=== PATIENT | female | born 1955 | race Caucasian/White ===

== ENCOUNTER 2019-09-17 15:16 | Emergency (ER) | payer MEDICAID ==
[~2019-09-17] VITALS: Ht 154.9 cm; Wt 103.0 kg
[2019-09-17 15:23] VITALS: BP 149/82
[2019-09-17] MEDS ORDERED: ACETAMINOPHEN 325MG TABLET PO ONE (16:00)
== END 2019-09-17 17:46 | disposition home or self-care (01) ==
LOC: ER 15:16
DX: R60.0 Localized edema (principal); I10 Essential (primary) hypertension
CPT/HCPCS: 93971; 99284

== ENCOUNTER 2021-04-17 16:02 | Inpatient (IN) | payer MEDICAID, MEDICARE ==
[~2021-04-17] VITALS: Ht 157.5 cm; Wt 74.8 kg
[2021-04-17 16:58] LABS: BASOPHILS % 0.6 % (0.0-2.0); EOSINOPHILS % 0.7 % (0.0-5.0); HEMOGLOBIN. 16.5 g/dL (12.0-16.0); LYMPHOCYTES % 18.1 % (20.0-50.0); MEAN CORPUSCULAR HEMOGLOBIN 30.7 pg (28.0-32.0); MEAN CORPUSCULAR VOLUME 91.6 fL (81.0-99.0); MONOCYTES % 11.3 % (2.0-8.0); NEUTROPHILS % 69.3 % (40.0-76.0); RED BLOOD CELL COUNT 5.36 mill/uL (4.2-5.4); RED CELL DISTRIBUTION WIDTH 14.4 % (11.6-14.6)
[2021-04-17 17:05] LABS: CHLORIDE 90 mEq/L (98-107)
[2021-04-17 17:16] LABS: MEAN PLATELET VOLUME 8.8 fl (7.4-10.4); PLATELET 250 x1000/uL (130-400)
[2021-04-17] MEDS ORDERED: FUROSEMIDE 20MG/2ML VIAL IVP ONE (18:00)
[2021-04-17 19:51] LABS: CLARITY URINE CLEAR (CLEAR); COLOR URINE YELLOW (YELLOW); KETONES URINE TRACE (NEGATIVE); LEUKOCYTE ESTERASE URINE NEGATIVE (NEGATIVE); NITRITE URINE NEGATIVE (NEGATIVE); OCCULT BLOOD URINE NEGATIVE (NEGATIVE); PROTEIN URINE NEGATIVE (NEGATIVE); SPECIFIC GRAVITY URINE 1.009 (1.005-1.030)
[2021-04-17 22:30] VITALS: BP 125/100
[2021-04-17 23:00] VITALS: BP 125/100
[2021-04-17] MEDS ORDERED: ACETAMINOPHEN 325MG TABLET PO PRN (23:00)
[2021-04-17] MEDS ORDERED: ONDANSETRON HCL 4MG TABLET PO NR (23:45)
[2021-04-18] VITALS (7 sets, daily range): BP systolic 92–136; BP diastolic 50–87
[2021-04-18] MEDS: CARVEDILOL 3.125 MG TABLET PO SCH ×3 (00:16→17:00)
[2021-04-18] MEDS ORDERED: HYDR12.54 MT (01:12)
[2021-04-18] MEDS ORDERED: PNEUMOCOCCAL 23-VAL P-SAC VAC 0.5 ML IM ONE (08:00)
[2021-04-18] MEDS ORDERED: FUROSEMIDE 40MG TABLET PO SCH (09:00)
[2021-04-18] MEDS ORDERED: LISINOPRIL 20MG TABLET PO SCH (09:00)
[2021-04-18] MEDS ORDERED: POTASSIUM CHLORIDE 20MEQ TABLET SR PO NR (10:00)
[2021-04-18] MEDS ORDERED: INFLUENZA VACCINE 05/PF 0.5 ML SYRINGE IM ONE (10:00)
[2021-04-18] MEDS ORDERED: REGADENOSON 0.4 MG/5 ML IV NR (11:00)
[2021-04-18] MEDS: FUROSEMIDE 40MG/4ML VIAL IVP SCH (11:42)
[2021-04-18] MEDS: ONDANSETRON HCL 4MG/2ML INJ IV PRN (11:42)
[2021-04-18] MEDS: ASPIRIN 81MG TABLET PO SCH (11:43)
[2021-04-18] MEDS: ENOXAPARIN 40MG/0.4ML SYR SUBCUT SCH (11:43)
[2021-04-18] MEDS ORDERED: LACTULOSE 20G/30ML UDC PO NR (19:30)
[2021-04-18] MEDS: ATORVASTATIN CALCIUM 10MG TABLET PO SCH (21:25)
[2021-04-19] VITALS: BP 121/73
[2021-04-19 04:00] VITALS: BP 114/79
[2021-04-19 06:10] LABS: BASOPHILS % 0.4 % (0.0-2.0); EOSINOPHILS % 0.4 % (0.0-5.0); HEMATOCRIT. 47.5 % (36.0-48.0); HEMOGLOBIN. 16.6 g/dL (12.0-16.0); LYMPHOCYTES % 12.9 % (20.0-50.0); MEAN CORPUSCULAR VOLUME 91.7 fL (81.0-99.0); MEAN PLATELET VOLUME 9.1 fl (7.4-10.4); MONOCYTES % 9.9 % (2.0-8.0); NEUTROPHILS % 76.4 % (40.0-76.0); PLATELET 280 x1000/uL (130-400); RED BLOOD CELL COUNT 5.18 mill/uL (4.2-5.4); RED CELL DISTRIBUTION WIDTH 14.5 % (11.6-14.6)
[2021-04-19] MEDS ORDERED: MORPHINE SULFATE 2 MG/ML CPJ (NOT FOR IM USE) IV PRN (07:00)
[2021-04-19] MEDS ORDERED: NALOXONE HCL 0.4MG/ML VIAL IV PRN (07:15)
[2021-04-19 08:00] VITALS: BP 136/66
[2021-04-19] MEDS: ASPIRIN 81MG TABLET PO SCH (09:14)
[2021-04-19] MEDS: CARVEDILOL 3.125 MG TABLET PO SCH (09:14)
[2021-04-19] MEDS: FUROSEMIDE 40MG/4ML VIAL IVP SCH (09:14)
[2021-04-19] MEDS: ENOXAPARIN 40MG/0.4ML SYR SUBCUT SCH (09:15)
[2021-04-19 12:00] VITALS: BP 110/55
[2021-04-19] MEDS ORDERED: REGADENOSON 0.4 MG/5 ML IV ONE (13:48)
[2021-04-19] MEDS ORDERED: FLUDROCORTISONE ACETATE 0.1MG TABLET PO SCH (14:00)
[2021-04-19] MEDS: MULTIVITAMINS,THER W-MINERALS TABLET PO SCH (15:48)
[2021-04-19 16:00] VITALS: BP 142/88
[2021-04-19] MEDS: FLUDROCORTISONE ACETATE 0.1MG TABLET PO SCH (17:39)
[2021-04-19 20:00] VITALS: BP 135/93
[2021-04-19] MEDS: ATORVASTATIN CALCIUM 10MG TABLET PO SCH (21:30)
[2021-04-20] VITALS: BP 129/74
[2021-04-20 04:00] VITALS: BP_SYST 106; BP_SYST 96; BP_DIAS 57; BP_DIAS 58
[2021-04-20 07:01] LABS: BASOPHILS % 0.5 % (0.0-2.0); EOSINOPHILS % 1.4 % (0.0-5.0); HEMATOCRIT. 45.2 % (36.0-48.0); HEMOGLOBIN. 15.7 g/dL (12.0-16.0); LYMPHOCYTES % 27.5 % (20.0-50.0); MEAN CORPUSCULAR HEMOGLOBIN 31.3 pg (28.0-32.0); MEAN CORPUSCULAR VOLUME 90.1 fL (81.0-99.0); MEAN PLATELET VOLUME 8.9 fl (7.4-10.4); MONOCYTES % 13.2 % (2.0-8.0); NEUTROPHILS % 57.4 % (40.0-76.0); PLATELET 257 x1000/uL (130-400); RED BLOOD CELL COUNT 5.02 mill/uL (4.2-5.4); RED CELL DISTRIBUTION WIDTH 14.7 % (11.6-14.6)
[2021-04-20 08:00] VITALS: BP 116/50
[2021-04-20] MEDS: FLUDROCORTISONE ACETATE 0.1MG TABLET PO SCH (08:48)
[2021-04-20] MEDS: ASPIRIN 81MG TABLET PO SCH (08:48)
[2021-04-20] MEDS: MULTIVITAMINS,THER W-MINERALS TABLET PO SCH (08:48)
[2021-04-20] MEDS: ENOXAPARIN 40MG/0.4ML SYR SUBCUT SCH (08:49)
[2021-04-20] MEDS ORDERED: POTASSIUM CHLORIDE 20MEQ TABLET SR PO NR ×2 (11:30→14:00)
[2021-04-20 16:00] VITALS: BP 109/67
[2021-04-20] MEDS: MIDODRINE HCL 5MG TABLET PO SCH (18:16)
[2021-04-20] MEDS ORDERED: SODIUM CHLORIDE 0.9% 500 ML IV ONE (18:30)
[2021-04-20 20:00] VITALS: BP 119/64
[2021-04-20] MEDS ORDERED: ATORVASTATIN CALCIUM 20MG TABLET PO SCH (21:00)
[2021-04-20] MEDS: ATORVASTATIN CALCIUM 10MG TABLET PO SCH (22:01)
[2021-04-21] VITALS: BP 107/66
[2021-04-21] MEDS ORDERED: SODIUM CHLORIDE IV SCH
[2021-04-21] MEDS ORDERED: SODIUM CHLORIDE 0.9% IV SCH ×2 (01:00→09:00)
[2021-04-21] MEDS ORDERED: POTASSIUM ACETATE IV SCH ×3 (01:00→09:00)
[2021-04-21 04:00] VITALS: BP 108/76
[2021-04-21 08:00] VITALS: BP 115/47
[2021-04-21 08:09] LABS: BASOPHILS % 0.9 % (0.0-2.0); EOSINOPHILS % 1.9 % (0.0-5.0); HEMATOCRIT. 44.3 % (36.0-48.0); HEMOGLOBIN. 15.1 g/dL (12.0-16.0); LYMPHOCYTES % 36.6 % (20.0-50.0); MEAN CORPUSCULAR HEMOGLOBIN 31.2 pg (28.0-32.0); MEAN CORPUSCULAR VOLUME 91.5 fL (81.0-99.0); MEAN PLATELET VOLUME 9.2 fl (7.4-10.4); MONOCYTES % 14.4 % (2.0-8.0); NEUTROPHILS % 46.2 % (40.0-76.0); PLATELET 249 x1000/uL (130-400); RED BLOOD CELL COUNT 4.85 mill/uL (4.2-5.4); RED CELL DISTRIBUTION WIDTH 14.6 % (11.6-14.6)
[2021-04-21] MEDS: MIDODRINE HCL 5MG TABLET PO SCH ×3 (08:31→16:21)
[2021-04-21] MEDS: ASPIRIN 81MG TABLET PO SCH (08:31)
[2021-04-21] MEDS: MULTIVITAMINS,THER W-MINERALS TABLET PO SCH (08:32)
[2021-04-21] MEDS: ENOXAPARIN 30MG/0.3ML SYR SUBCUT SCH (10:59)
[2021-04-21 12:00] VITALS: BP 116/70
[2021-04-21] MEDS: POTASSIUM CHLORIDE INJ 10 MEQ in SODIUM CHLORIDE 0.9% 1,000 ML IV SCH (13:44)
[2021-04-21] MEDS ORDERED: MIDAZOLAM HCL 5 MG/5 ML VIAL ONE (14:22)
[2021-04-21] MEDS ORDERED: LIDOCAINE HCL 1% 10 MG/ML 10ML VIAL ONE (14:22)
[2021-04-21] MEDS ORDERED: FENTANYL CITRATE/PF 50MCG/ML 5ML VIAL ONE (14:22)
[2021-04-21] MEDS ORDERED: IODIXANOL 320MG/ML 100 ML BOTTLE IV ONE (14:23)
[2021-04-21 16:00] VITALS: BP 134/72
[2021-04-21] MEDS: DOCUSATE SODIUM 250MG CAPSULE PO SCH (16:21)
[2021-04-21] MEDS ORDERED: MAGNESIUM CITRATE 300ML SOLUTION PO SCH (17:00)
[2021-04-21 20:00] VITALS: BP 146/82
[2021-04-21] MEDS: ATORVASTATIN CALCIUM 10MG TABLET PO SCH (21:35)
[2021-04-22] VITALS: BP 118/64
[2021-04-22 04:00] VITALS: BP 107/71
[2021-04-22 08:00] VITALS: BP 129/60
[2021-04-22 08:28] LABS: BASOPHILS % 0.5 % (0.0-2.0); EOSINOPHILS % 1.9 % (0.0-5.0); HEMATOCRIT. 42.2 % (36.0-48.0); HEMOGLOBIN. 14.7 g/dL (12.0-16.0); MEAN CORPUSCULAR HEMOGLOBIN 31.6 pg (28.0-32.0); MEAN CORPUSCULAR VOLUME 90.7 fL (81.0-99.0); MEAN PLATELET VOLUME 8.7 fl (7.4-10.4); MONOCYTES % 10.6 % (2.0-8.0); PLATELET 249 x1000/uL (130-400); RED BLOOD CELL COUNT 4.65 mill/uL (4.2-5.4); RED CELL DISTRIBUTION WIDTH 14.6 % (11.6-14.6)
[2021-04-22 08:53] LABS: CHLORIDE 96 mEq/L (98-107)
[2021-04-22] MEDS: LACTULOSE 20G/30ML UDC PO SCH ×3 (09:00→13:00)
[2021-04-22 09:23] LABS: FOLIC ACID (FOLATE) SERUM 4.1 ng/mL (>5.38)
[2021-04-22] MEDS: POTASSIUM CHLORIDE INJ 10 MEQ in SODIUM CHLORIDE 0.9% 1,000 ML IV SCH (10:28)
[2021-04-22] MEDS: ASPIRIN 81MG TABLET PO SCH (10:29)
[2021-04-22] MEDS: DOCUSATE SODIUM 250MG CAPSULE PO SCH (10:29)
[2021-04-22] MEDS: MULTIVITAMINS,THER W-MINERALS TABLET PO SCH (10:29)
[2021-04-22] MEDS: MIDODRINE HCL 5MG TABLET PO SCH ×3 (10:30→17:56)
[2021-04-22 12:00] VITALS: BP 128/79
[2021-04-22] MEDS: ENOXAPARIN 30MG/0.3ML SYR SUBCUT SCH (12:45)
[2021-04-22 16:00] VITALS: BP 130/86
[2021-04-22 20:00] VITALS: BP 141/76
[2021-04-22] MEDS ORDERED: ATORVASTATIN CALCIUM 10MG TABLET PO SCH (21:00)
[2021-04-22] MEDS: ATORVASTATIN CALCIUM 10MG TABLET PO SCH (21:04)
[2021-04-23] VITALS: BP 129/65
[2021-04-23 04:00] VITALS: BP 116/60
[2021-04-23] MEDS: POTASSIUM CHLORIDE INJ 10 MEQ in SODIUM CHLORIDE 0.9% 1,000 ML IV SCH (06:46)
[2021-04-23 06:48] LABS: BASOPHILS % 0.4 % (0.0-2.0); EOSINOPHILS % 2.4 % (0.0-5.0); HEMATOCRIT. 41.1 % (36.0-48.0); HEMOGLOBIN. 14.5 g/dL (12.0-16.0); LYMPHOCYTES % 45.6 % (20.0-50.0); MEAN CORPUSCULAR HEMOGLOBIN 31.9 pg (28.0-32.0); MEAN CORPUSCULAR VOLUME 90.5 fL (81.0-99.0); MEAN PLATELET VOLUME 9.2 fl (7.4-10.4); MONOCYTES % 10.9 % (2.0-8.0); NEUTROPHILS % 40.7 % (40.0-76.0); PLATELET 255 x1000/uL (130-400); RED BLOOD CELL COUNT 4.54 mill/uL (4.2-5.4); RED CELL DISTRIBUTION WIDTH 14.6 % (11.6-14.6)
[2021-04-23 06:56] LABS: CHLORIDE 100 mEq/L (98-107)
[2021-04-23 08:00] VITALS: BP 135/57
[2021-04-23] MEDS ORDERED: FOLIC ACID 1MG TABLET PO SCH (09:00)
[2021-04-23] MEDS: DOCUSATE SODIUM 250MG CAPSULE PO SCH (09:01)
[2021-04-23] MEDS: FOLIC ACID 1MG TABLET PO SCH (09:01)
[2021-04-23] MEDS: ASPIRIN 81MG TABLET PO SCH (09:01)
[2021-04-23] MEDS: MULTIVITAMINS,THER W-MINERALS TABLET PO SCH (09:01)
[2021-04-23] MEDS: MIDODRINE HCL 5MG TABLET PO SCH ×2 (09:02→16:58)
[2021-04-23] MEDS: ENOXAPARIN 40MG/0.4ML SYR SUBCUT SCH (10:25)
[2021-04-23 12:00] VITALS: BP 135/52
[2021-04-23 16:00] VITALS: BP 150/77
[2021-04-23 20:00] VITALS: BP 138/78
[2021-04-23] MEDS: ATORVASTATIN CALCIUM 10MG TABLET PO SCH (21:16)
[2021-04-24] VITALS: BP 149/75
[2021-04-24] MEDS: POTASSIUM CHLORIDE INJ 10 MEQ in SODIUM CHLORIDE 0.9% 1,000 ML IV SCH ×2 (00:01→23:07)
[2021-04-24 04:00] VITALS: BP 153/85
[2021-04-24 08:00] VITALS: BP 142/79
[2021-04-24 08:03] LABS: T4 FREE 1.17 ng/dL (0.76-1.46)
[2021-04-24] MEDS: FOLIC ACID 1MG TABLET PO SCH (08:28)
[2021-04-24] MEDS: ASPIRIN 81MG TABLET PO SCH (08:28)
[2021-04-24] MEDS: MULTIVITAMINS,THER W-MINERALS TABLET PO SCH (08:28)
[2021-04-24] MEDS: DOCUSATE SODIUM 250MG CAPSULE PO SCH (08:29)
[2021-04-24] MEDS: ENOXAPARIN 40MG/0.4ML SYR SUBCUT SCH (08:29)
[2021-04-24] MEDS: MIDODRINE HCL 5MG TABLET PO SCH ×2 (08:29→16:59)
[2021-04-24 12:00] VITALS: BP 154/86
[2021-04-24 16:00] VITALS: BP 157/87
[2021-04-24 20:00] VITALS: BP 150/74
[2021-04-24] MEDS: ATORVASTATIN CALCIUM 10MG TABLET PO SCH (21:59)
[2021-04-25] VITALS: BP 97/60
[2021-04-25 04:00] VITALS: BP 174/97
[2021-04-25 05:25] LABS: CHLORIDE 107 mEq/L (98-107)
[2021-04-25 08:00] VITALS: BP 157/76
[2021-04-25] MEDS ORDERED: POTASSIUM CHLORIDE 20MEQ TABLET SR PO SCH (08:15)
[2021-04-25] MEDS: ENOXAPARIN 40MG/0.4ML SYR SUBCUT SCH (08:37)
[2021-04-25] MEDS: MULTIVITAMINS,THER W-MINERALS TABLET PO SCH (08:37)
[2021-04-25] MEDS: FOLIC ACID 1MG TABLET PO SCH (08:37)
[2021-04-25] MEDS: ASPIRIN 81MG TABLET PO SCH (08:37)
[2021-04-25] MEDS: DOCUSATE SODIUM 250MG CAPSULE PO SCH (08:37)
[2021-04-25 16:00] VITALS: BP 151/85
[2021-04-25] MEDS: POTASSIUM CHLORIDE INJ 10 MEQ in SODIUM CHLORIDE 0.9% 1,000 ML IV SCH (17:47)
[2021-04-25 20:00] VITALS: BP 141/63
[2021-04-25] MEDS: ATORVASTATIN CALCIUM 10MG TABLET PO SCH (20:55)
[2021-04-26] VITALS: BP 154/70
[2021-04-26] MEDS ORDERED: POTASSIUM CHLORIDE 20MEQ TABLET SR PO SCH (00:45)
[2021-04-26] MEDS ORDERED: SODIUM CHL 0.45% + KCL 20MEQ/L 1,000 ML IV SCH (01:00)
[2021-04-26 04:00] VITALS: BP 135/59
[2021-04-26 07:40] LABS: CHLORIDE 108 mEq/L (98-107)
[2021-04-26 08:00] VITALS: BP 121/61
[2021-04-26] MEDS: DOCUSATE SODIUM 250MG CAPSULE PO SCH (09:00)
[2021-04-26] MEDS: ASPIRIN 81MG TABLET PO SCH (09:11)
[2021-04-26] MEDS: MULTIVITAMINS,THER W-MINERALS TABLET PO SCH (09:11)
[2021-04-26] MEDS: FOLIC ACID 1MG TABLET PO SCH (09:11)
[2021-04-26] MEDS: ONDANSETRON HCL 4MG/2ML INJ IV PRN (09:11)
[2021-04-26] MEDS: ENOXAPARIN 40MG/0.4ML SYR SUBCUT SCH (09:11)
[2021-04-26 09:44] LABS: BASOPHILS % 0.3 % (0.0-2.0); EOSINOPHILS % 4.5 % (0.0-5.0); HEMATOCRIT. 43.2 % (36.0-48.0); LYMPHOCYTES % 44.1 % (20.0-50.0); MEAN CORPUSCULAR HEMOGLOBIN 32.2 pg (28.0-32.0); MEAN CORPUSCULAR VOLUME 92.7 fL (81.0-99.0); MEAN PLATELET VOLUME 9.9 fl (7.4-10.4); MONOCYTES % 8.3 % (2.0-8.0); NEUTROPHILS % 42.8 % (40.0-76.0); PLATELET 233 x1000/uL (130-400); RED BLOOD CELL COUNT 4.66 mill/uL (4.2-5.4); RED CELL DISTRIBUTION WIDTH 14.9 % (11.6-14.6)
[2021-04-26 12:00] VITALS: BP_SYST 146; BP_SYST 149; BP_DIAS 67; BP_DIAS 68; BP_DIAS 76
[2021-04-26] MEDS: AMLODIPINE 5MG TABLET PO SCH (13:00)
[2021-04-26 16:00] VITALS: BP 135/59
[2021-04-26 20:00] VITALS: BP 145/75
[2021-04-26] MEDS: ATORVASTATIN CALCIUM 10MG TABLET PO SCH (21:15)
[2021-04-27] VITALS (7 sets, daily range): BP systolic 112–138; BP diastolic 57–74
[2021-04-27] MEDS ORDERED: LEVOTHYROXINE SODIUM 25MCG TABLET PO SCH (06:40)
[2021-04-27 07:11] LABS: BASOPHILS % 0.5 % (0.0-2.0); EOSINOPHILS % 2.8 % (0.0-5.0); HEMATOCRIT. 37.3 % (36.0-48.0); LYMPHOCYTES % 39.4 % (20.0-50.0); MEAN CORPUSCULAR HEMOGLOBIN 32.3 pg (28.0-32.0); MEAN CORPUSCULAR VOLUME 92.3 fL (81.0-99.0); NEUTROPHILS % 49.3 % (40.0-76.0); PLATELET 228 x1000/uL (130-400); RED BLOOD CELL COUNT 4.04 mill/uL (4.2-5.4); RED CELL DISTRIBUTION WIDTH 14.8 % (11.6-14.6)
[2021-04-27 07:56] LABS: CHLORIDE 107 mEq/L (98-107)
[2021-04-27] MEDS: DOCUSATE SODIUM 250MG CAPSULE PO SCH (09:00)
[2021-04-27] MEDS: ASPIRIN 81MG TABLET PO SCH (09:32)
[2021-04-27] MEDS: ENOXAPARIN 40MG/0.4ML SYR SUBCUT SCH (09:33)
[2021-04-27] MEDS: FOLIC ACID 1MG TABLET PO SCH (09:33)
[2021-04-27] MEDS: MULTIVITAMINS,THER W-MINERALS TABLET PO SCH (09:33)
[2021-04-27] MEDS: AMLODIPINE 5MG TABLET PO SCH (09:33)
[2021-04-27] MEDS: ATORVASTATIN CALCIUM 10MG TABLET PO SCH (21:12)
[2021-04-28 15:09] LABS: 25-HYDROXY VITAMIN D3 12 ng/mL (.)
== END 2021-04-27 23:05 | DRG 48 ==
LOC: ER 16:17 → ENRESERV 21:27 → 7EST 23:49
PROVIDERS: ADMIT Internal Medicine; ATTEND Internal Medicine
PROC: 4A10X4Z Monitoring of Central Nervous Electrical Activity, External Approach (ICD-10-PCS; principal; 2021-04-26)
DX: G90.8 Other disorders of autonomic nervous system (principal); R65.11 Systemic inflammatory response syndrome (SIRS) of non-infectious origin with acute organ dysfunction; N17.9 Acute kidney failure, unspecified; E87.8 Other disorders of electrolyte and fluid balance, not elsewhere classified; E87.1 Hypo-osmolality and hyponatremia; M48.54XA Collapsed vertebra, not elsewhere classified, thoracic region, initial encounter for fracture; G93.89 Other specified disorders of brain; E86.0 Dehydration; I95.1 Orthostatic hypotension; E87.6 Hypokalemia; E87.70 Fluid overload, unspecified; E78.5 Hyperlipidemia, unspecified; I10 Essential (primary) hypertension; E78.00 Pure hypercholesterolemia, unspecified; M48.061 Spinal stenosis, lumbar region without neurogenic claudication; M48.02 Spinal stenosis, cervical region; Z20.822 Contact with and (suspected) exposure to COVID-19; E03.9 Hypothyroidism, unspecified; R53.81 Other malaise; E66.9 Obesity, unspecified; E53.8 Deficiency of other specified B group vitamins; Z86.73 Personal history of transient ischemic attack (TIA), and cerebral infarction without residual deficits; Z82.49 Family history of ischemic heart disease and other diseases of the circulatory system; Z98.84 Bariatric surgery status; Z79.899 Other long term (current) drug therapy; Z68.30 Body mass index [BMI] 30.0-30.9, adult; Z98.891 History of uterine scar from previous surgery; R26.89 Other abnormalities of gait and mobility
CPT/HCPCS: 36415; 70544; 70551; 71045; 72141; 72146; 72148; 74018; 76770; 78452; 78582; 80048; 80053; 80061; 81003; 82140; 82306; 82533; 82607; 82746; 83735; 83880; 83930; 84439; 84443; 84481; 84484; 85025; 85379; 87426; 90686; 90732; 93005; 93017; 93306; 93880; 93970; 97116; 97162; 97166; 97535; 99285; A9500; A9558; C1893; J1650; J1940; J2250; J2405; J2785; J3010; J3480; J3490; J7030; J7040; Q9967; A4315

== ENCOUNTER 2021-04-27 23:05 | Inpatient (IN) | payer MEDICARE, MEDICAID ==
[~2021-04-27] VITALS: Ht 157.5 cm; Wt 70.8 kg
[2021-04-27 20:00] VITALS: BP 132/50
[2021-04-27 23:05] VITALS: BP 132/50
[~2021-04-27 23:05] MED LIST: HYDR12.54 MT
[2021-04-28] MEDS ORDERED: ONDANSETRON HCL 4MG TABLET PO PRN (00:15)
[2021-04-28] MEDS ORDERED: ACETAMINOPHEN 650MG/20.3ML UDC PO PRN (00:15)
[2021-04-28 06:54] LABS: CHLORIDE 107 mEq/L (98-107)
[2021-04-28 07:05] LABS: BASOPHILS % 0.4 % (0.0-2.0); EOSINOPHILS % 3.4 % (0.0-5.0); HEMATOCRIT. 37.5 % (36.0-48.0); LYMPHOCYTES % 41.9 % (20.0-50.0); MEAN CORPUSCULAR HEMOGLOBIN 31.9 pg (28.0-32.0); MEAN CORPUSCULAR VOLUME 92.2 fL (81.0-99.0); MEAN PLATELET VOLUME 7.9 fl (7.4-10.4); MONOCYTES % 9.2 % (2.0-8.0); NEUTROPHILS % 45.1 % (40.0-76.0); PLATELET 233 x1000/uL (130-400); RED BLOOD CELL COUNT 4.06 mill/uL (4.2-5.4)
[2021-04-28 08:00] VITALS: BP 142/65
[2021-04-28] MEDS: MULTIVITAMINS,THER W-MINERALS TABLET PO SCH (08:54)
[2021-04-28] MEDS: ASPIRIN 81MG TABLET PO SCH (08:54)
[2021-04-28] MEDS: AMLODIPINE 5MG TABLET PO SCH (08:55)
[2021-04-28] MEDS: FOLIC ACID 1MG TABLET PO SCH (08:55)
[2021-04-28] MEDS: DOCUSATE SODIUM 250MG CAPSULE PO SCH (08:55)
[2021-04-28] MEDS: LEVOTHYROXINE SODIUM 25MCG TABLET PO SCH (08:55)
[2021-04-28] MEDS: CARVEDILOL 3.125 MG TABLET PO SCH ×2 (08:56→21:00)
[2021-04-28] MEDS: ENOXAPARIN 40MG/0.4ML SYR SUBCUT SCH (08:57)
[2021-04-28] MEDS ORDERED: FUROSEMIDE 40MG TABLET PO SCH (09:00)
[2021-04-28] MEDS: ERGOCALCIFEROL 50000UNITS CAPSULE PO SCH (16:07)
[2021-04-28 20:00] VITALS: BP 101/84
[2021-04-28] MEDS: ATORVASTATIN CALCIUM 10MG TABLET PO SCH (21:17)
[2021-04-29] MEDS: LEVOTHYROXINE SODIUM 25MCG TABLET PO SCH (06:42)
[2021-04-29] MEDS: BISACODYL 5MG TABLET PO SCH ×2 (06:57→07:00)
[2021-04-29 08:00] VITALS: BP 122/62
[2021-04-29] MEDS: FOLIC ACID 1MG TABLET PO SCH (09:00)
[2021-04-29] MEDS: ASPIRIN 81MG TABLET PO SCH (09:00)
[2021-04-29] MEDS: DOCUSATE SODIUM 250MG CAPSULE PO SCH (09:00)
[2021-04-29] MEDS: MULTIVITAMINS,THER W-MINERALS TABLET PO SCH (09:00)
[2021-04-29] MEDS ORDERED: FUROSEMIDE 20MG TABLET PO SCH (09:00)
[2021-04-29] MEDS: AMLODIPINE 5MG TABLET PO SCH (09:00)
[2021-04-29] MEDS: CARVEDILOL 3.125 MG TABLET PO SCH ×2 (09:05→22:11)
[2021-04-29] MEDS: ENOXAPARIN 40MG/0.4ML SYR SUBCUT SCH (09:05)
[2021-04-29 16:39] LABS: CLARITY URINE CLEAR (CLEAR); COLOR URINE YELLOW (YELLOW); KETONES URINE 1+ (NEGATIVE); LEUKOCYTE ESTERASE URINE 1+ (NEGATIVE); NITRITE URINE POSITIVE (NEGATIVE); OCCULT BLOOD URINE NEGATIVE (NEGATIVE); PH URINE 5.5 (4.5-8.0); PROTEIN URINE NEGATIVE (NEGATIVE); SPECIFIC GRAVITY URINE 1.013 (1.005-1.030); UROBILINOGEN URINE 0.2 E.U./dL (0.2-1.0)
[2021-04-29 19:34] LABS: BASOPHILS % 0.4 % (0.0-2.0); EOSINOPHILS % 1.3 % (0.0-5.0); HEMATOCRIT. 40.2 % (36.0-48.0); HEMOGLOBIN. 13.7 g/dL (12.0-16.0); LYMPHOCYTES % 36.7 % (20.0-50.0); MEAN CORPUSCULAR HEMOGLOBIN 31.3 pg (28.0-32.0); MEAN PLATELET VOLUME 7.4 fl (7.4-10.4); MONOCYTES % 8.8 % (2.0-8.0); NEUTROPHILS % 52.8 % (40.0-76.0); PLATELET 265 x1000/uL (130-400); RED BLOOD CELL COUNT 4.37 mill/uL (4.2-5.4); RED CELL DISTRIBUTION WIDTH 14.8 % (11.6-14.6)
[2021-04-29 20:00] VITALS: BP 133/59
[2021-04-29] MEDS ORDERED: POTASSIUM CHLORIDE 20MEQ TABLET SR PO NR (21:30)
[2021-04-29] MEDS: ATORVASTATIN CALCIUM 10MG TABLET PO SCH (22:11)
[2021-04-30] MEDS: LEVOTHYROXINE SODIUM 25MCG TABLET PO SCH (06:28)
[2021-04-30 08:00] VITALS: BP 125/62
[2021-04-30] MEDS: DOCUSATE SODIUM 250MG CAPSULE PO SCH (09:00)
[2021-04-30] MEDS: AMLODIPINE 5MG TABLET PO SCH (09:27)
[2021-04-30] MEDS: FOLIC ACID 1MG TABLET PO SCH (09:27)
[2021-04-30] MEDS: ASPIRIN 81MG TABLET PO SCH (09:27)
[2021-04-30] MEDS: CARVEDILOL 3.125 MG TABLET PO SCH ×2 (09:27→21:00)
[2021-04-30] MEDS: ENOXAPARIN 40MG/0.4ML SYR SUBCUT SCH (09:27)
[2021-04-30] MEDS: MULTIVITAMINS,THER W-MINERALS TABLET PO SCH (09:27)
[2021-04-30 16:00] VITALS: BP_SYST 105; BP_SYST 113; BP_SYST 96; BP_DIAS 52; BP_DIAS 56; BP_DIAS 57
[2021-04-30 20:00] VITALS: BP_SYST 101; BP_SYST 105; BP_SYST 98; BP_DIAS 52; BP_DIAS 53; BP_DIAS 64
[2021-04-30] MEDS: ATORVASTATIN CALCIUM 10MG TABLET PO SCH (21:37)
[2021-04-30] MEDS ORDERED: POTASSIUM CHLORIDE 20MEQ TABLET SR PO NR (23:30)
[2021-05-01 06:00] VITALS: BP_SYST 115; BP_SYST 132; BP_SYST 134; BP_DIAS 63; BP_DIAS 72; BP_DIAS 73
[2021-05-01] MEDS: LEVOTHYROXINE SODIUM 25MCG TABLET PO SCH (06:33)
[2021-05-01] MEDS: FOLIC ACID 1MG TABLET PO SCH (09:17)
[2021-05-01] MEDS: ASPIRIN 81MG TABLET PO SCH (09:17)
[2021-05-01] MEDS: MULTIVITAMINS,THER W-MINERALS TABLET PO SCH (09:17)
[2021-05-01] MEDS: DOCUSATE SODIUM 250MG CAPSULE PO SCH (09:17)
[2021-05-01] MEDS: CARVEDILOL 3.125 MG TABLET PO SCH ×2 (09:22→21:31)
[2021-05-01] MEDS: ENOXAPARIN 40MG/0.4ML SYR SUBCUT SCH (09:23)
[2021-05-01] MEDS: AMLODIPINE 5MG TABLET PO SCH (09:23)
[2021-05-01 13:50] LABS: CHLORIDE 105 mEq/L (98-107)
[2021-05-01 20:00] VITALS: BP_SYST 120; BP_SYST 138; BP_DIAS 61; BP_DIAS 62
[2021-05-01] MEDS: ATORVASTATIN CALCIUM 10MG TABLET PO SCH (21:31)
[2021-05-02] MEDS: LEVOTHYROXINE SODIUM 25MCG TABLET PO SCH (06:13)
[2021-05-02 08:15] VITALS: BP 123/54
[2021-05-02] MEDS: DOCUSATE SODIUM 250MG CAPSULE PO SCH (08:59)
[2021-05-02] MEDS: MULTIVITAMINS,THER W-MINERALS TABLET PO SCH (08:59)
[2021-05-02] MEDS: ASPIRIN 81MG TABLET PO SCH (08:59)
[2021-05-02] MEDS: AMLODIPINE 5MG TABLET PO SCH (08:59)
[2021-05-02] MEDS: ENOXAPARIN 40MG/0.4ML SYR SUBCUT SCH (08:59)
[2021-05-02] MEDS: FOLIC ACID 1MG TABLET PO SCH (08:59)
[2021-05-02] MEDS: CARVEDILOL 3.125 MG TABLET PO SCH ×2 (09:00→21:52)
[2021-05-02 17:29] LABS: CLARITY URINE CLOUDY (CLEAR); COLOR URINE DARK YELLOW (YELLOW); KETONES URINE 1+ (NEGATIVE); LEUKOCYTE ESTERASE URINE 2+ (NEGATIVE); NITRITE URINE POSITIVE (NEGATIVE); OCCULT BLOOD URINE TRACE (NEGATIVE); PH URINE 5.5 (4.5-8.0); PROTEIN URINE TRACE (NEGATIVE); SPECIFIC GRAVITY URINE 1.027 (1.005-1.030)
[2021-05-02] MEDS ORDERED: LEVOFLOXACIN 500MG TABLET PO NR (18:15)
[2021-05-02 20:00] VITALS: BP_SYST 109; BP_SYST 110; BP_DIAS 64; BP_DIAS 68
[2021-05-02] MEDS: ATORVASTATIN CALCIUM 10MG TABLET PO SCH (21:52)
[2021-05-03] MEDS: LEVOTHYROXINE SODIUM 25MCG TABLET PO SCH (06:17)
[2021-05-03 07:48] LABS: BASOPHILS % 0.4 % (0.0-2.0); EOSINOPHILS % 2.1 % (0.0-5.0); HEMATOCRIT. 35.9 % (36.0-48.0); HEMOGLOBIN. 12.7 g/dL (12.0-16.0); LYMPHOCYTES % 41.9 % (20.0-50.0); MEAN CORPUSCULAR HEMOGLOBIN 32.6 pg (28.0-32.0); MEAN PLATELET VOLUME 8.8 fl (7.4-10.4); MONOCYTES % 11.3 % (2.0-8.0); NEUTROPHILS % 44.3 % (40.0-76.0); PLATELET 235 x1000/uL (130-400)
[2021-05-03 08:00] VITALS: BP 113/54
[2021-05-03] MEDS: AMLODIPINE 5MG TABLET PO SCH (09:00)
[2021-05-03] MEDS: CARVEDILOL 3.125 MG TABLET PO SCH ×2 (10:00→21:10)
[2021-05-03] MEDS: ASPIRIN 81MG TABLET PO SCH (10:01)
[2021-05-03] MEDS: MULTIVITAMINS,THER W-MINERALS TABLET PO SCH (10:01)
[2021-05-03] MEDS: FOLIC ACID 1MG TABLET PO SCH (10:03)
[2021-05-03] MEDS: DOCUSATE SODIUM 250MG CAPSULE PO SCH (10:03)
[2021-05-03] MEDS: ENOXAPARIN 40MG/0.4ML SYR SUBCUT SCH (10:03)
[2021-05-03] MEDS: LEVOFLOXACIN 250MG TABLET PO SCH (10:29)
[2021-05-03 20:00] VITALS: BP 125/65
[2021-05-03] MEDS: ATORVASTATIN CALCIUM 10MG TABLET PO SCH (21:10)
[2021-05-04] MEDS: LEVOTHYROXINE SODIUM 25MCG TABLET PO SCH (06:32)
[2021-05-04 08:17] VITALS: BP 130/59
[2021-05-04] MEDS: DOCUSATE SODIUM 250MG CAPSULE PO SCH (08:23)
[2021-05-04] MEDS: MULTIVITAMINS,THER W-MINERALS TABLET PO SCH (08:24)
[2021-05-04] MEDS: FOLIC ACID 1MG TABLET PO SCH (08:24)
[2021-05-04] MEDS: CARVEDILOL 3.125 MG TABLET PO SCH ×2 (08:24→21:30)
[2021-05-04] MEDS: ASPIRIN 81MG TABLET PO SCH (08:24)
[2021-05-04] MEDS: AMLODIPINE 5MG TABLET PO SCH (08:24)
[2021-05-04] MEDS: ENOXAPARIN 40MG/0.4ML SYR SUBCUT SCH (08:25)
[2021-05-04] MEDS: LEVOFLOXACIN 250MG TABLET PO SCH (11:22)
[2021-05-04] MEDS ORDERED: LEVO500T89 MT (20:40)
[2021-05-04] MEDS ORDERED: AMLO5TAB88 PO (20:40)
[2021-05-04 20:42] VITALS: BP 132/41
[2021-05-04] MEDS: ATORVASTATIN CALCIUM 10MG TABLET PO SCH (21:30)
[2021-05-05] MEDS: LEVOTHYROXINE SODIUM 25MCG TABLET PO SCH (05:21)
[2021-05-05 08:00] VITALS: BP 125/63
[2021-05-05] MEDS: ASPIRIN 81MG TABLET PO SCH (08:27)
[2021-05-05] MEDS: DOCUSATE SODIUM 250MG CAPSULE PO SCH (08:28)
[2021-05-05] MEDS: MULTIVITAMINS,THER W-MINERALS TABLET PO SCH (08:30)
[2021-05-05] MEDS: FOLIC ACID 1MG TABLET PO SCH (08:30)
[2021-05-05] MEDS: AMLODIPINE 5MG TABLET PO SCH (08:30)
[2021-05-05] MEDS: CARVEDILOL 3.125 MG TABLET PO SCH (08:30)
[2021-05-05] MEDS: ENOXAPARIN 40MG/0.4ML SYR SUBCUT SCH (08:31)
[2021-05-05] MEDS: ERGOCALCIFEROL 50000UNITS CAPSULE PO SCH (08:31)
[2021-05-05] MEDS: LEVOFLOXACIN 250MG TABLET PO SCH (11:37)
[2021-05-05 13:35] VITALS: BP 125/63
== END 2021-05-05 14:00 | disposition home health service (06) | DRG 71 ==
PROVIDERS: ADMIT Physical Medicine & Rehabilitation Spinal Cord Injury Medicine; ATTEND Internal Medicine
DX: G93.41 Metabolic encephalopathy (principal); G45.9 Transient cerebral ischemic attack, unspecified; N17.9 Acute kidney failure, unspecified; E87.1 Hypo-osmolality and hyponatremia; M48.54XA Collapsed vertebra, not elsewhere classified, thoracic region, initial encounter for fracture; N39.0 Urinary tract infection, site not specified; E44.0 Moderate protein-calorie malnutrition; I95.1 Orthostatic hypotension; I10 Essential (primary) hypertension; R53.81 Other malaise; M48.061 Spinal stenosis, lumbar region without neurogenic claudication; E87.6 Hypokalemia; E53.8 Deficiency of other specified B group vitamins; E55.9 Vitamin D deficiency, unspecified; F06.34 Mood disorder due to known physiological condition with mixed features; E66.9 Obesity, unspecified; G93.89 Other specified disorders of brain; E78.00 Pure hypercholesterolemia, unspecified; M48.02 Spinal stenosis, cervical region; R20.0 Anesthesia of skin; R26.89 Other abnormalities of gait and mobility; R79.89 Other specified abnormal findings of blood chemistry; R00.0 Tachycardia, unspecified; Z98.84 Bariatric surgery status; Z56.0 Unemployment, unspecified; Z68.28 Body mass index [BMI] 28.0-28.9, adult; Z86.73 Personal history of transient ischemic attack (TIA), and cerebral infarction without residual deficits; Z79.899 Other long term (current) drug therapy
CPT/HCPCS: 36415; 74018; 80048; 80053; 81003; 84134; 85025; 87077; 87186; 92523; 93970; 97110; 97116; 97150; 97162; 97166; 97530; 97535; J1650

== ENCOUNTER 2023-02-18 23:54 | Emergency (ER) | payer MEDICARE, MEDICAID ==
[~2023-02-18] VITALS: Ht 157.5 cm; Wt 65.0 kg
[~2023-02-18 23:54] MED LIST changes: +AMLO5TAB88 PO; +LEVO-65 MT
[2023-02-19 00:19] VITALS: BP 129/44; O2SAT 97
[2023-02-19 03:59] LABS: HEMOGLOBIN 12.5 g/dL (12.0-16.0); MEAN CORPUSCULAR HEMOGLOBIN 31.3 pg (28.0-32.0); MEAN CORPUSCULAR HGB CONC 33.8 g/dL (31.0-37.0); MEAN CORPUSCULAR VOLUME 92.7 fL (81.0-99.0); PLATELET 193 x1000/uL (130-400); RED CELL DISTRIBUTION WIDTH 13.7 % (11.6-14.6); WHITE BLOOD COUNT 6.1 x1000/uL (4.5-11.0)
[2023-02-19 04:08] LABS: CHLORIDE 105 mEq/L (98-107); INDEX HEMOLYSI 2 (1-3); INDEX ICTERIC 1 (1-4); INDEX LIPEMIC 1 (1-3); POTASSIUM 4.2 mEq/L (3.5-5.1); SODIUM 134 mEq/L (136-145)
[2023-02-19 04:15] LABS: PARTIAL THROMBOPLASTIN TIME 26.5 sec (23.4-31.0); PROTHROMBIN TIME 10.8 sec (9.6-11.0)
[2023-02-19 04:15] LABS: ALANINE AMINOTRANSFERASE 15 IU/L (13-61); ALBUMIN 3.8 g/dL (3.4-5.0); ASPARTATE AMINOTRANSFERASE 14 IU/L (15-37); BILIRUBIN TOTAL 0.4 mg/dL (0.1-1.0); CALCIUM 8.7 mg/dL (8.5-10.1); CARBON DIOXIDE 26 mEq/L (21-32); CREATINE KINASE 76 IU/L (26-192); CREATININE 1.1 mg/dL (0.6-1.3); GLUCOSE 80 mg/dL (70-105); UREA NITROGEN BLOOD 18 mg/dL (7-21)
[2023-02-19 04:45] VITALS: PULSE 84; RESP 16; TEMP 98.4
== END 2023-02-19 04:45 | disposition home or self-care (01) ==
LOC: ER 23:54
DX: R25.2 Cramp and spasm (principal); M79.604 Pain in right leg; I10 Essential (primary) hypertension; Z86.73 Personal history of transient ischemic attack (TIA), and cerebral infarction without residual deficits
CPT/HCPCS: 36415; 80053; 82550; 85027; 93970; 99284